=== PATIENT | female | born 1995 | race Caucasian/White ===

== ENCOUNTER → 2018-05-06 | Outpatient (CLI) | payer BC ==
--- NOTE | 2018-05-06 09:40 | RADIOLOGY IMAGING REPORT ---
FACILITY: [facility] PATIENT NAME: Annamarie Scott : 1995 MR: [id number] V: [id number] EXAM DATE: ORDERING PHYSICIAN: MARRY PETERSON TECHNOLOGIST: Location: [facility] Patient: Annamarie Scott : 1995 Visit/Account:[id number] Date of Sevice: 05/06/2018 L SPINE W/O CONTRAST COMPARISON: None Additional pertinent history: Right-sided pain with history of fracture of the right SI joint. Technique: Multiplanar multisequence lumbar spine MRI was performed without gadolinium enhancement. FINDINGS: Vertebral body heights and alignment: Negative. Vertebral marrow signal: Negative. Distal thoracic cord and conus: Negative. The conus ends at L1-L2. Surrounding soft tissues: Negative. Inspection of the disc spaces reveal the following: L5-S1: Negative. L4-L5: Negative. L3-L4: Negative. L2-L3: Negative. L1-L2: Negative. T12-L1: Negative. IMPRESSION: Normal lumbar spine MRI without contrast Report Dictated By: Ernst George MD at 05/06/2018 9:26 AM Report E-Signed By: Ernst George MD at 05/06/2018 9:35 AM WSN:[id number]
== END ==
LOC: MRI 07:36
PROVIDERS: ATTEND Orthopaedic Surgery
DX: M54.5 Low back pain (principal)
CPT/HCPCS: 72148